=== PATIENT | female | born 2000 | race African-American/Black ===

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

== ENCOUNTER 2020-03-17 09:36 | Emergency (ER) | payer OTHER ==
--- NOTE | 2020-03-17 10:34 | RAD ---
EXAM: 3 views of the thoracic spine HISTORY: Thoracic spine pain COMPARISON: None FINDINGS: 3 views of the thoracic spine shows normal height and alignment of the vertebral bodies and intervertebral discs without fracture or subluxation. No significant degenerative changes are seen. IMPRESSION: No significant thoracic spine abnormality.
== END 2020-03-17 10:38 | disposition home or self-care (01) ==
LOC: NAV ERS 09:36
DX: S20.229A Contusion of unspecified back wall of thorax, initial encounter (principal); W20.8XXA Other cause of strike by thrown, projected or falling object, initial encounter
CPT/HCPCS: 72072